=== PATIENT | male | born 1935 | race Caucasian/White ===

== ENCOUNTER 2019-10-27 08:31 | Observation (INO) | payer OTHER, MEDICARE ==
[~2019-10-27] VITALS: Ht 188 cm; Wt 128.8 kg
[~2019-10-27 08:31] MED LIST: ALLO100 PO; ALLO300 PO; ASPI81CH PO; ATOR40TA PO; ATOR80 PO; Allergy Relief10 M1 PO; Artificial Tear15 ML BOTHEYES; BUME1 PO; Bactrim Ds Tab1 EACH PO; CHOL10002 PO; CLOP75 PO; Coumadin5 MG PO; DOCU100 PO; DOXA4 PO; FAMO40 PO; FISH OIL PO; FURO20 PO; Felodipine ER5 MG PO; Flonase 0.05% N16 GM; GABA100 PO; GABA300 PO; GAVILAX17 GM PO; HYDACE10B PO; HYDRA25 PO; HYDRA50 PO; Humalog Mi100 UNIT/4 SC; Humulin R500 UNIT/1 SC; INSULANPEN SC; Isosorbide Mono60 MG PO; LAVAP17G PO; LISI20 PO; LORA10 PO; LOVA40 PO; MECL12.5 PO; METO25ER PO; Mupirocin22 GM TOP; NITR.4SL SL; NORT75 PO; NOVOLOG FL100 UNIT/2 SC; Novolog Fl100 UNIT/1 SC; OXYC5 PO; Omeprazole20 M1 PO; POTCHL10ER PO; POTCHL20ER PO; PRED10 PO; PRED20 PO; Pure & Gentle E15 ML BOTHEYES; SILD50TA PO; TAMS.4ER PO; TERA5 PO; WARF5 PO
[2019-10-27] MEDS ORDERED: Aspirin EC81 MG PO (08:48)
[2019-10-27] MEDS ORDERED: ELIQUIS2.5 MG PO (08:48)
[2019-10-27] MEDS ORDERED: DOXA4 (08:49)
[2019-10-27] MEDS ORDERED: DOXA4 PO (08:49)
[2019-10-27] MEDS ORDERED: GABA100 PO ×2 (08:50→12:21)
[2019-10-27] MEDS ORDERED: Norco 10-325 T1 EACH PO (08:50)
[2019-10-27] MEDS ORDERED: HYDRA50 PO (08:50)
[2019-10-27] MEDS ORDERED: Isosorbide Mono30 MG PO (08:51)
[2019-10-27] MEDS ORDERED: SENN187 PO (08:53)
[2019-10-27 08:58] LABS: BASOPHILS ABSOLUTE AUTO 0.05 K/mm3 (0.00-0.23); BASOPHILS PERCENT AUTO 1 % (0-2); EOSINOPHILS ABSOLUTE AUTO 0.31 K/mm3 (0.00-0.68); EOSINOPHILS PERCENT AUTO 5 % (0-6); Hematocrit 28.3 % (37.0-53.0); Hemoglobin 8.9 g/dL (13.5-17.5); IMMATURE GRAN ABSOLUTE AUTO 0.04 K/mm3 (0.00-0.10); IMMATURE GRAN PERCENT AUTO 1 % (0-1); LYMPHOCYTES ABSOLUTE AUTO 0.97 K/mm3 (0.84-5.20); LYMPHOCYTES PERCENT AUTO 17 % (21-46); MONOCYTES PERCENT AUTO 7 % (4-13); Mean Corpuscular HGB 31.6 pg (26.0-34.0); Mean Corpuscular HGB Conc 31.4 g/dL (31.5-36.5); Mean Corpuscular Volume 100 fL (80-100); Mean Platelet Volume 11.2 fL (9.1-12.4); NEUTROPHILS ABSOLUTE AUTO 4.01 K/mm3 (1.96-9.15); NEUTROPHILS PERCENT AUTO 69 % (41-73); Platelet Count 142 K/mm3 (150-400); RDW Coefficient Variation 15.2 % (11.7-14.2); RDW Standard Deviation 56.5 fL (35.1-46.3); Red Blood Cell Count 2.82 M/mm3 (4.30-5.90); White Blood Cell Count 5.78 K/mm3 (4.00-11.30)
[2019-10-27 09:19] LABS: Albumin, Blood 3.5 g/dL (3.4-5.0); Albumin/Globulin Ratio 1.1 (0.8-1.8); Bilirubin, Total 0.3 mg/dL (0.1-1.0); Bun/Creatinine Ratio 28.2 (12.0-20.0); Calcium, Blood 8.6 mg/dL (8.5-10.1); Creatinine, Blood 2.13 mg/dL (0.60-1.20); Globulin, Blood 3.2 g/dL (2.2-4.0); Potassium, Blood 4.1 mmol/L (3.5-5.5); Total Protein, Blood 6.7 g/dL (6.4-8.2)
[2019-10-27] MEDS ORDERED: Prinivil10 MG PO (12:23)
--- NOTE | 2019-10-27 15:57 | NUR ---
SHIFT SUMMARY PT ADMITTED FROM THE ER THIS AFTERNOON. HE IS A/O X 4 WITH NO C/O PAIN. HE DENIES CHEST PAIN NOW AND REPORTS HE IS ONLY SOB IF HE GETS UP AND WALKS. HE WAS ORIENTED TO HIS ROOM, CALL LIGHT AND NURSING STAFF. NUCLEAR MED CAME UPSTAIRS TO REPORT THAT THEY WILL BE DOING THE FIRST PART OF HIS STRESS TEST TOMORROW MORNING AND THE PT WAS MADE AWARE OF THIS. HE CAN EAT UP UNTIL 7 AM TOMORROW MORNING AND THE PT AGREED TO THIS AND THE WHITE BOARD WAS UPDATED. PT AGREED TO USE THE URINAL AT THE BEDSIDE SINCE HE HAS AN ORDER FOR BEDREST. PT IS ABLE TO MAKE HIS NEEDS KNOWN AND HIS CALL LIGHT IS IN REACH.
--- NOTE | 2019-10-27 18:31 | NUR ---
1800 GABAPENTIN WAS GIVEN ORDERED BUT MEDITECH FAILED. TECH SUPPORT HAS BEEN NOTIFIED AND A TICKET IS OPEN BUT THEY HAVE NOT CALLED BACK TO RESOLVE THE ISSUE. CHARGE NURSE IS AWARE. WILL REPORT TO ONCOMING RN.
--- NOTE | 2019-10-28 04:18 | NUR ---
PCU BEHAVIORAL HEALTH TECHNICIAN CALLED WHILE REGULAR RN ON LUNCH. REPORTED THAT HE SUSTAINED A HR OF 40 FOR SOME TIME NOW. MOTION STUDY ANALYST ALREADY IN THE ROOM, WOKE HIM UP AND HR STARTED TO RISE. HE IS CURRENTLY RUNNING 45-47 AWAKE. STATES LAST TIME HE WAS IN THE HOSPTIAL HE HAD THE SAME PROBLEM, BUT THEY DID NOT DO ANYTHING. WILL INFORM MARVIN RN WHEN HE RETURNS FROM LUNCH.
[2019-10-28 05:00] LABS: BASOPHILS ABSOLUTE AUTO 0.04 K/mm3 (0.00-0.23); BASOPHILS PERCENT AUTO 1 % (0-2); EOSINOPHILS ABSOLUTE AUTO 0.34 K/mm3 (0.00-0.68); EOSINOPHILS PERCENT AUTO 6 % (0-6); Hematocrit 26.7 % (37.0-53.0); Hemoglobin 8.4 g/dL (13.5-17.5); IMMATURE GRAN ABSOLUTE AUTO 0.02 K/mm3 (0.00-0.10); IMMATURE GRAN PERCENT AUTO 0 % (0-1); LYMPHOCYTES ABSOLUTE AUTO 1.01 K/mm3 (0.84-5.20); LYMPHOCYTES PERCENT AUTO 18 % (21-46); MONOCYTES ABSOLUTE AUTO 0.55 K/mm3 (0.16-1.47); MONOCYTES PERCENT AUTO 10 % (4-13); Mean Corpuscular HGB 31.2 pg (26.0-34.0); Mean Corpuscular HGB Conc 31.5 g/dL (31.5-36.5); Mean Corpuscular Volume 99 fL (80-100); Mean Platelet Volume 11.4 fL (9.1-12.4); NEUTROPHILS ABSOLUTE AUTO 3.58 K/mm3 (1.96-9.15); NEUTROPHILS PERCENT AUTO 65 % (41-73); Platelet Count 134 K/mm3 (150-400); RDW Coefficient Variation 15.3 % (11.7-14.2); RDW Standard Deviation 54.8 fL (35.1-46.3); Red Blood Cell Count 2.69 M/mm3 (4.30-5.90); White Blood Cell Count 5.54 K/mm3 (4.00-11.30)
--- NOTE | 2019-10-28 05:07 | NUR ---
BALLISTICS PROFESSOR SUMMARY PT AAOX4 AND PLEASANT. MAINLY BEDREST, USING URINAL AT BEDSIDE. PT DENIES CHEST PAINS TONIGHT. SAYS THEY MAINLY OCCUR WHEN HE EXERTS HIMSELF TOO MUCH. AFTER PT WENT TO SLEEP HE HAS BEEN LITZY ON TELEMETRY WITH HR MID 40'S TO 50'S. PT ASYMPTOMATIC AND STATES THAT IS FAIRLY COMMON FOR HIM. PT WILL BE NPO AT 0700 THIS AM IN PREP FOR A STRESS TEST LATER TODAY. VSS, WILL CONTINUE TO MONITOR.
[2019-10-28 05:20] LABS: Anion Gap 7 mmol/L (6-16); Blood Urea Nitrogen 58 mg/dL (8-24); Bun/Creatinine Ratio 28.4 (12.0-20.0); CO2, Blood 22 mmol/L (21-32); Calcium, Blood 8.4 mg/dL (8.5-10.1); Chloride, Blood 116 mmol/L (98-108); Creatinine, Blood 2.04 mg/dL (0.60-1.20); Glomerular Filtration Rate 33 (60-); Glucose, Blood 117 mg/dL (70-99); Potassium, Blood 4.3 mmol/L (3.5-5.5); Sodium, Blood 145 mmol/L (136-145); Troponin I <0.015 ng/mL (0.000-0.040)
--- NOTE | 2019-10-28 14:54 | NUR ---
DISCHARGE THIS RN EXPLAINED DISCHARGE INSTRUCTIONS AND MEDICATIONS TO PT AND HE REPORTS HE UNDERSTANDS. IV REMOVED WITHOUT DIFFICULTY. PT TRANSFERRED TO PRIVATE VEHICLE VIA WHEELCHAIR. BELONGINGS WITH PT.
--- NOTE | 2019-10-28 15:44 | NUR ---
DISCHARGE PT DISCHARGED TO HOME WITH RAJNI ORDERS FOR ROCEPHIN IV DAILY X5 DAYS. IV PATENT IN RIGHT AC AND WILL BE USED FOR RAJNI INFUSION. THIS RN PLACED NETTING TO IV SITE TO PROTECT IT. THIS RN ALSO EDUCATED PT ON HOW TO KEEP IV SITE DRY WHEN TAKING A SHOWER. THIS RN EXPLAINED DISCHARGE INSTRUCTIONS AND MEDICATIONS TO PT AND HE REPORTS HE UNDERSTANDS. MEDICATIONS FAXED TO REQUESTED PHARMACY. PT TRANSFERRED TO PRIVATE VEHICLE VIA WHEELCHAIR. PT'S BELONGINGS WITH PT.
== END 2019-10-28 13:45 | disposition home or self-care (01) ==
LOC: ER 08:31 → MEDS 08:32 → ENPENDDIS 10-28 11:30 → MEDS 10-28 13:45
PROVIDERS: Emergency Medicine; ADMIT Internal Medicine
DX: I25.110 Atherosclerotic heart disease of native coronary artery with unstable angina pectoris (principal); I13.0 Hypertensive heart and chronic kidney disease with heart failure and stage 1 through stage 4 chronic kidney disease, or unspecified chronic kidney disease; I50.32 Chronic diastolic (congestive) heart failure; E11.22 Type 2 diabetes mellitus with diabetic chronic kidney disease; N18.3 Chronic kidney disease, stage 3 (moderate); D63.1 Anemia in chronic kidney disease; I48.20 Chronic atrial fibrillation, unspecified; E66.9 Obesity, unspecified; Z79.02 Long term (current) use of antithrombotics/antiplatelets; Z95.1 Presence of aortocoronary bypass graft; Z79.01 Long term (current) use of anticoagulants; Z79.4 Long term (current) use of insulin; Z87.891 Personal history of nicotine dependence; Z88.0 Allergy status to penicillin; Z88.8 Allergy status to other drugs, medicaments and biological substances; Z91.018 Allergy to other foods; Z79.82 Long term (current) use of aspirin; Z79.899 Other long term (current) drug therapy
CPT/HCPCS: 36415; 71045; 80048; 80053; 82947; 83880; 84484; 85025; 93005; 93010; 94660; 94762; 99285-25; A9270-GY; G0378; J1650; J1815